=== PATIENT | male | born 1965 | race Two or more races ===

== ENCOUNTER 2017-06-23 20:44 | Inpatient (IN) | payer MEDICARE, MEDICAID ==
--- NOTE | 2017-06-23 21:12 | ED Physician Chart ---
ED Chief Complaint/HPI - Patient Information Date Seen:: 06/23/17 Time Seen:: 21:05 Chief Complaint:: aggressive behavior History of Present Illness:: [facility] been exhibiting aggressive behavior and inappropriately touching female employees Historian:: EMS Review:: Transfer documents Reviewed ED Review of Systems - Review of Systems General/Constitutional: No fever, No chills Skin: No skin lesions Head: No headache Eyes: Acuity change ENT: No earache Neck: No neck pain Cardio Vascular: No chest pain, No palpitations Pulmonary: No SOB GI: No nausea, No vomiting, No diarrhea Musculoskeletal: No bone or joint pain, No back pain, No muscle pain Endocrine: No polyuria Psychiatric: Prior psych history Hematopoietic: No bruising Allergic/Immuno: No urticaria Neurological: No syncope ED Past Medical History - Past Medical History Past Medical History: Other (intellectual disability) Family History: Other (unavailable) Social History: Care Facility Surgical History: other (unknown) Psychiatricy History: Other (unspecified intellectual disability ) Medication: Reviewed Family Medical History - Family Member Mother History Unknown: Yes ED Physical Exam - Physical Examination General/Constitutional: Well-developed, well-nourished, Alert, No distress Head: Atraumatic Eyes: Lids, conjuctiva normal Skin: Nl inspection ENMT: External ears, nose nl Neck: No nuchal rigidity Respiratory: Nl effort/Exclusion, Clear to Auscultation, No Wheeze/Rhonchi/Rales Cardio Vascular: RRR, No murmur, gallop, rubs GI: No tenderness/rebounding/guarding, No organomegaly, No hernia Other Extremities comments:: Paralysis left arm Other Neuro/Psych comments:: Drooping left corner mouth and paralysis left arm Misc: No paraspinal tenderness ED Labs/Radiology/EKG Results - Lab Results Results: Laboratory Results - last 24 hr 06/23/17 06/23/17 06/23/17 21:29 21:29 21:29 WBC 7.8 RBC 4.59 Hgb 13.6 Hct 41.4 MCV 90.1 MCH 29.7 MCHC Differential 33.0 RDW 14.2 Plt Count 229 MPV 8.4 Neutrophils % 56.8 Lymphocytes % 31.4 Monocytes % 7.9 Eosinophils % 2.2 Basophils % 1.7 Sodium 138 Potassium 3.8 Chloride 110 H Carbon Dioxide 22.8 Anion Gap 9.0 BUN 16 Creatinine 0.9 Est GFR ( Amer) > 60.0 Est GFR (Non-Af Amer) > 60.0 BUN/Creatinine Ratio 17.8 Glucose 95 Hemoglobin A1c % 5.5 Calcium 9.1 Total Bilirubin 0.3 AST 19 ALT 16 Alkaline Phosphatase 54 Total Protein 6.1 Albumin 3.3 L Globulin 2.8 Albumin/Globulin Ratio 1.2 Triglycerides 66 Cholesterol 95 LDL Cholesterol Direct 55 L HDL Cholesterol 35 - EKG Interpretations Rate & Rhythm: normal sinus rhythm with a rate of 68 Hasty: normal axis Comments:: Normal EKG ED Septic Shock - . Is Septic Shock (SBP<90, OR Lactate>4 mmol\L) present?: No ED Reassessment (Disposition) - Reassessment Reassessment:: Patient started using the F word frequently and was restless so he was sedated with Haldol 5 mg, Benadryl 50 milligrams and Ativan 2 mg all intramuscularly after which patient became sedated. - Diagnosis Diagnosis:: Aggressive behavior; mental disability - Patient Disposition Admitted to:: [facility] Admitting Medical Physician:: Cruzito Moise Admitting Psych Physician:: Alejandrina Negron Condition at Disposition:: Stable, Improved
[2017-06-23] MEDS ORDERED: Haloperidol Lactate 5 mg/mL 1mL Vial IM PRN ×2 (21:44→23:45)
[2017-06-23] MEDS ORDERED: Haloperidol Lactate 5 mg/mL 1mL Vial ONE (21:47)
[2017-06-23 21:48] LABS: % BASOPHILS 1.7 % (0.0-2.0); % EOSINOPHILS 2.2 % (0.0-5.0); % LYMPHOCYTES 31.4 % (20.0-50.0); % MONOCYTES 7.9 % (2.0-10.0); % NEUTROPHILS 56.8 % (40.0-80.0); BASOPHILE ABSOLUTE 0.1 Th/cumm (0-0.2); EOSINOPHILE ABSOLUTE 0.2 Th/cmm (0.1-0.4); HEMATOCRIT 41.4 % (41.0-60); HEMOGLOBIN 13.6 gm/dL (12-16); LYMPHOCYTE ABSOLUTE 2.4 Th/cmm (1.5-3.0); MEAN CELL VOLUME 90.1 fl (80-99); MEAN CORPUSCULAR HEMOGLOBIN 29.7 pg (26.0-30.0); MEAN PLATELET VOLUME 8.4 fl; MONOCYTE ABSOLUTE 0.6 Th/cmm (0.3-1.0); NEUTROPHILE ABSOLUTE 4.5 Th/cmm (1.8-8.0); PLATELET COUNT 229 Th/cmm (150-400); RED BLOOD COUNT 4.59 Mil/cmm (4.30-5.70); RED CELL DISTRIBUTION WIDTH 14.2 % (11.5-20.0); WHITE BLOOD COUNT 7.8 Th/cmm (4.8-10.8)
[2017-06-23 22:00] LABS: ALB/GLOB RATIO 1.2 (1.0-1.8); ALBUMIN 3.3 gm/dL (4.2-5.5); ALKALINE PHOSPHATASE 54 U/L (34-104); BILIRUBIN,TOTAL 0.3 mg/dL (0.3-1.0); BUN - UREA NITROGEN 16 mg/dL (7-25); CALCIUM SERUM 9.1 mg/dL (8.6-10.3); CARBON DIOXIDE 22.8 mEq/L (21.0-31.0); CHLORIDE 110 mEq/L (98-107); CHOLESTEROL 95 mg/dL (<200); CREATININE - SERUM 0.9 mg/dL (0.7-1.3); GFR AFRICAN-AMERICAN > 60.0 ml/min (>90); GFR NON AFRICAN-AMERICAN > 60.0 ml/min; GLUCOSE 95 mg/dL (70-105); HDL -HIGH DENSITY LIPOPROTEIN 35 mg/dL (23-92); POTASSIUM SERUM 3.8 mEq/L (3.5-5.1); SGOT 19 U/L (13-39); SGPT/ALT 16 U/L (7-52); SODIUM SERUM 138 mEq/L (136-145); TOTAL PROTEIN,SERUM 6.1 gm/dL (6.0-8.3); TRIGLYCERIDES 66 mg/dL (<150)
[2017-06-23 22:07] LABS: A1C % 5.5 % (4.0-6.0)
[2017-06-23 23:50] VITALS: BP 116/58
[2017-06-24] MEDS ORDERED: Magnesium Hydroxide (MOM) 30 mL UDC PO PRN ×2 (00:22→06:38)
[2017-06-24] MEDS ORDERED: Maalox 30 mL Cup PO PRN (00:22)
[2017-06-24] MEDS ORDERED: Non-Formulary Item 1 EA (Acetaminophen [Acetaminophen] 650 MG) PO PRN (06:38)
[2017-06-24] MEDS ORDERED: Fleet Enema 135 mL RC PRN (06:38)
[2017-06-24] MEDS ORDERED: Non-Formulary Item 1 EA (Cranberry [Cranberry] 450 MG) PO SCH (09:00)
[2017-06-24] MEDS: Lactobacillus Rhamnosus GG 15 Billion CFU CAP.SPRINK PO SCH ×2 (09:55→18:08)
[2017-06-24] MEDS: Atorvastatin Calcium 10 MG TAB PO SCH (09:55)
[2017-06-24] MEDS: Aspirin 81mg Chewable Tab PO SCH (09:55)
[2017-06-24] MEDS: Multivitamin Tab PO SCH (09:55)
--- NOTE | 2017-06-24 10:49 | Psychosocial Evaluation ---
DATE OF SERVICE: 06/23/2017 IDENTIFYING INFORMATION: The patient is a 51-year-old male. CHIEF COMPLAINT: No answer. HISTORY OF PRESENT ILLNESS: The patient was admitted because of aggressive behavior. [facility] He has exhibited aggressive behavior, inappropriately touching females and employees. This information was from the records. The patient is a very poor historian, nonverbal. He is mentally disabled with severe MR. PAST PSYCHIATRIC HISTORY: Unobtainable, but history of aggressive behavior. MEDICAL HISTORY: The patient has epilepsy. Apparently, he also had a CVA. He is with the [facility]. The patient has been on Depakene and Topamax for his seizure disorder. The dose of Depakote is 500 mg 3 times a day and topiramate 150 mg twice a day. He was given Haldol yesterday in the Emergency Room because of agitation and aggressive behavior. He is also on Celexa 40 mg daily, also on atorvastatin for hyperlipidemia. FAMILY AND SOCIAL HISTORY: Unobtainable. MENTAL STATUS EXAMINATION: The patient was in bed. He was alert, opening his eyes, but he would not answer any of my question, unpredictable, impulsive, needing redirection. Unable to participate in meaningful conversation or make safe plan for self-care, tell me his age, date, where he is, why he is here. He was acting aggressive, unable to participate in memory function, which obviously is decreased, long and short term memory. Unable to answer question on suicide and homicide. He was acting aggressive. He is unpredictable, irritable, easily to get agitated. Insight and judgment is impaired. IMPRESSION: AXIS I: Psychosis, not otherwise specified, rule out bipolar disorder, also severe MR. MEDICAL DIAGNOSES: Epilepsy and hyperlipidemia. Also on a psych diagnosis, depression, not otherwise specified. His assets, he is accepting treatment. Negative for poor coping skills. INITIAL TREATMENT PLAN: The patient will continue medication. We will evaluate the patient and adjust the medication as needed. ESTIMATED LENGTH OF STAY: 3-7 days. DISCHARGE CRITERIA: Decreased agitation, no longer acting aggressive, decreased depression. After discharge, outpatient. [facility]# [id number]
[2017-06-25] MEDS: Multivitamin Tab PO SCH (08:28)
[2017-06-25] MEDS: Aspirin 81mg Chewable Tab PO SCH (08:28)
[2017-06-25] MEDS: Atorvastatin Calcium 10 MG TAB PO SCH (08:29)
[2017-06-25] MEDS: Lactobacillus Rhamnosus GG 15 Billion CFU CAP.SPRINK PO SCH ×2 (08:29→16:41)
--- NOTE | 2017-06-25 18:45 | Progress Notes ---
DATE: The patient was seen and evaluated. The patient's chart reviewed. Covering for Dr. Negron. IDENTIFYING DATA: This is a 51-year-old male who was brought in here for aggressive behavior from a [facility] and touching female patients inappropriately. In the hospital course, in the last 48 hours, the patient has been started on and implemented atorvastatin, Celexa 40 mg a day, Topamax 150 mg p.o. b.i.d., Depakote 500 mg p.o. t.i.d. and Ambien 5 mg as needed. Today on [id number] evaluation, the patient is in his room, isolated, disengaged, he mostly stares and just reports everything is okay, everything is okay. When attempted to discuss more of a therapeutic alliance where he was coming from, the patient becomes more irritable and disengages in interview. MENTAL STATUS EXAMINATION: Still disengaged, distraught, overwhelmed, unpredictable. ASSESSMENT AND PLAN: The patient finds himself easily irritable, agitated, touching females inappropriately and hypersexual. We will continue monitoring and evaluating the Depakote level as he is on higher end of the 1500 mg and Celexa at 40 mg. JOB# [id number]
[2017-06-26] MEDS: Atorvastatin Calcium 10 MG TAB PO SCH (09:24)
[2017-06-26] MEDS: Aspirin 81mg Chewable Tab PO SCH (09:25)
[2017-06-26] MEDS: Multivitamin Tab PO SCH (09:26)
[2017-06-26] MEDS: Lactobacillus Rhamnosus GG 15 Billion CFU CAP.SPRINK PO SCH ×2 (09:26→16:56)
--- NOTE | 2017-06-26 19:06 | Progress Notes ---
DATE: 06/26/2017 COVERING FOR: Dr. Negron SUBJECTIVE: Overnight nursing staff reported the patient has been disengaged in his room, minimally interactive. Today on [id number] evaluation in his room, he denies any side effects of medications. MENTAL STATUS EXAMINATION: Mostly looks the garcia and states okay, does not give much more information beyond that, does know exactly where he is, unable to engage in a linear conversation, disengaged. ASSESSMENT AND PLAN: The patient with a history of unpredictable behavior, engaging and hypersexual episodes. We will continue with primary psychiatrist's treatment planning goals which include Celexa 40 mg a day, Topamax 150 twice a day, Depakote 500 mg p.o. t.i.d. to target the patient's mood and hypersexual behavior. [facility]# [id number]
--- NOTE | 2017-06-27 03:19 | History & Physical ---
ADMIT DATE: 06/26/2017 REASON FOR ADMISSION: Psychiatric disorders. HISTORY OF PRESENT ILLNESS: This is a 51-year-old male was admitted to [facility] for underlying psychiatric illness by Dr. Negron. Dr. Negron requested medical H and P for this patient. The patient denies any medical complaints or concerns. PAST MEDICAL HISTORY: Seizure disorders, hyperlipidemia. PAST SURGICAL HISTORY: No significant past surgical history reported. SOCIAL HISTORY: Negative for alcohol, tobacco or street drug use. CURRENT MEDICATIONS: Tylenol, Mylanta, aspirin, atorvastatin, vitamin D, Celexa, docusate, lactobacillus, magnesium oxide, multivitamin, Topamax, Depakote and Ambien. REVIEW OF SYSTEMS: No reported fever, no chills, no diarrhea, no vomiting, no headache, no abdominal pain, no chest pain, no shortness of breath, no palpitations. PHYSICAL EXAMINATION: VITAL SIGNS: Temperature 97.3, pulse 64, respirations 20, blood pressure 100/57, 99% on room air. Pain 0/10. GENERAL APPEARANCE: The patient lying comfortably. HEART: S1, S2 normal. LUNGS: Clear to auscultation bilaterally. ABDOMEN: Soft, nontender. NEUROLOGIC: The patient is awake, grossly nonfocal. EXTREMITIES: No edema. AVAILABLE LABORATORY DATA: Has been reviewed. ASSESSMENT: 1. Seizure disorder. 2. Hyperlipidemia. 3. Mental disorder. PLAN: Continue seizuzre medications, the patient's seizure precautions, fall precautions. Continue statin. Psych evaluation and management per psychiatrist. Thank you, Dr. Negron, for allowing me to participate in the care of this patient. [facility]# [id number] [facility]
[2017-06-27] MEDS: Multivitamin Tab PO SCH (09:54)
[2017-06-27] MEDS: Atorvastatin Calcium 10 MG TAB PO SCH (09:55)
[2017-06-27] MEDS: Aspirin 81mg Chewable Tab PO SCH (09:55)
[2017-06-27] MEDS: Lactobacillus Rhamnosus GG 15 Billion CFU CAP.SPRINK PO SCH ×2 (09:56→17:42)
--- NOTE | 2017-06-27 22:52 | Progress Notes ---
DATE: 06/27/2017 Case was discussed with staff of the patient. The staff report, the patient was sleep walking yesterday. The patient continues to be confused. He is demented with low IQ. He is unpredictable, impulsive, and needing redirection. He has been compliant with the medication with no side effects, no sedation, and no nausea. He is on Namenda 10 mg twice a day and Depakote was initiated on the 06/23/2017, so I will be checking his level to help with his agitation to make sure we are on the right dose and no side effects with the medication, no sedation, and no nausea. We will continue to work with the patient in group therapy, milieu therapy, and adjust the medications as needed. JOB# [id number]
[2017-06-28] MEDS: Lactobacillus Rhamnosus GG 15 Billion CFU CAP.SPRINK PO SCH ×2 (09:11→17:38)
[2017-06-28] MEDS: Atorvastatin Calcium 10 MG TAB PO SCH (09:12)
[2017-06-28] MEDS: Multivitamin Tab PO SCH (09:12)
[2017-06-28] MEDS: Aspirin 81mg Chewable Tab PO SCH (09:12)
--- NOTE | 2017-06-28 23:36 | Progress Notes ---
DATE: 06/28/2017 Case was discussed with staff of the patient, reviewed records. The patient continues to be unpredictable, impulsive, needing redirection, confused, and unable to make safe plan for self-care or participate in meaningful conversation. Continues to have poor insight. He is sleeping better. He is prompting to eat. No side effects with the medication, no sedation, and no nausea. We will continue to work with the patient in group therapy, milieu therapy, and adjust the medications as needed. JOB# [id number]
[2017-06-29] MEDS: Multivitamin Tab PO SCH (09:41)
[2017-06-29] MEDS: Aspirin 81mg Chewable Tab PO SCH (09:41)
[2017-06-29] MEDS: Lactobacillus Rhamnosus GG 15 Billion CFU CAP.SPRINK PO SCH ×2 (09:41→16:33)
[2017-06-29] MEDS: Atorvastatin Calcium 10 MG TAB PO SCH (09:42)
--- NOTE | 2017-06-29 17:23 | Progress Notes ---
DATE: 06/29/2017 SUBJECTIVE: The patient seen and examined. The patient is lying in the bed. The patient has no seizure activity. Denies any chest pain, shortness of breath, palpitation, dizziness, nausea, vomiting. PHYSICAL EXAMINATION: VITAL SIGNS: Temperature 98, pulse is 64, respiratory rate 18, blood pressure 110/60. HEENT: No facial asymmetry. Poor dentition noted. NECK: Supple, no JVD. HEART: Regular. CHEST: Lung equal in expansion. LUNGS: No wheezing, no crackles. ABDOMEN: Soft, no guarding or rigidity. Bowel sounds are not palpable. EXTREMITIES: No edema. NEUROLOGIC: Nonfocal. CLINICAL IMPRESSION: 1. Psychiatric disorder. 2. Seizure disorder. 3. Hyperlipidemia. PLAN: 1. Seizure precautions. 2. Seizure medication. 3. Statin. 4. General nursing care. 5. Fall precautions. 6. Psychotic evaluation and management defer to psychiatrist. 7. Care plan reviewed. JOB# [id number]
--- NOTE | 2017-06-30 02:42 | Progress Notes ---
DATE: 06/29/2017 Case was discussed with staff of the patient and reviewed records. The patient continues to be irritable, easily agitated, unpredictable, impulsive, needing redirection. He continues to have poor insight, unable to make safe plan for self-care or participate in meaningful conversation. No side effects to the medication, no sedation, no nausea, no extrapyramidal symptoms. Still easily agitated. We will be checking his Depakote level. JOB# [id number]
[2017-06-30] MEDS: Atorvastatin Calcium 10 MG TAB PO SCH (09:51)
[2017-06-30] MEDS: Lactobacillus Rhamnosus GG 15 Billion CFU CAP.SPRINK PO SCH ×2 (09:51→16:24)
[2017-06-30] MEDS: Aspirin 81mg Chewable Tab PO SCH (09:51)
[2017-06-30] MEDS: Multivitamin Tab PO SCH (09:51)
--- NOTE | 2017-06-30 21:55 | Progress Notes ---
DATE: 06/30/2017 SUBJECTIVE: The patient seen and examined. The patient has no new complaint. PHYSICAL EXAMINATION: VITAL SIGNS: See nurse's notes. HEENT: Poor dentition. NECK: Supple, no JVD. HEART: Regular. CHEST: Lung equal in expansion. No wheezing, no crackles. ABDOMEN: Soft. EXTREMITIES: No edema. CLINICAL IMPRESSION: 1. Seizure disorder. 2. Hyperlipidemia. 3. Psychotic disorder. PLAN: Continue seizure medication with seizure precautions. Continue statin along with followup lipid panel as an outpatient. Continue for general nursing care along with psychiatric treatment as provided by the psychiatrist. JOB# [id number]
--- NOTE | 2017-07-01 02:02 | Progress Notes ---
DATE: 06/30/2017 SUBJECTIVE: Case was discussed with staff of the patient and reviewed records. The patient continues to have poor insight. Continues to be unpredictable, impulsive, and needing redirection. He is limited with his IQ. He is on Celexa 40 mg a day, multivitamin, topiramate 150 mg twice a day, and Depakote 500 mg 3 times a day with no side effects, no sedation, and no nausea. His RPR is nonreactive. TSH is within normal range. He has low LDL. The serum cholesterol otherwise is within normal range. Chemistry panel with high chloride, the rest is within normal range. CBC within normal range. PLAN: We will continue the patient in group therapy, milieu therapy, and adjust medication as needed. JOB# [id number]
[2017-07-01] MEDS: Atorvastatin Calcium 10 MG TAB PO SCH (09:14)
[2017-07-01] MEDS: Lactobacillus Rhamnosus GG 15 Billion CFU CAP.SPRINK PO SCH ×2 (09:15→16:36)
[2017-07-01] MEDS: Aspirin 81mg Chewable Tab PO SCH (09:17)
[2017-07-01] MEDS: Multivitamin Tab PO SCH (09:17)
--- NOTE | 2017-07-01 20:48 | Progress Notes ---
DATE: 07/01/2017 SUBJECTIVE: Case was discussed with staff of the patient and reviewed records. The patient continues to be confused. He is incontinent. Continues to be unable to make safe plan for self-care, unpredictable, impulsive, and needing redirection. He is compliant with the medication, no side effects, no sedation, no nausea noted from the symptoms and we will continue to work with the patient in group therapy, milieu therapy, adjust medication as needed. JOB# [id number]
[2017-07-02] MEDS: Atorvastatin Calcium 10 MG TAB PO SCH (09:48)
[2017-07-02] MEDS: Multivitamin Tab PO SCH (09:50)
[2017-07-02] MEDS: Aspirin 81mg Chewable Tab PO SCH (09:50)
[2017-07-02] MEDS: Lactobacillus Rhamnosus GG 15 Billion CFU CAP.SPRINK PO SCH ×2 (09:50→16:40)
--- NOTE | 2017-07-02 23:51 | Progress Notes ---
DATE: 07/02/2017 SUBJECTIVE: Case discussed with staff of the patient, reviewed records. The patient continues to be confused, unpredictable, impulsive, needing redirection. Continues to have episodes of agitation, irritability. He continues to have poor insight. Unable to engage in a meaningful conversation. He is developmentally disabled. Compliant with the medication with no side effects, no sedation, no nausea. His lab work showed CBC within normal range. Chemistry panel with high chloride and the rest within normal range with low albumin. Lipid profile with low LDL cholesterol, rest within normal range. RPR nonreactive. We will continue to work with the patient in group therapy, milieu therapy, and adjust the medication as needed. JOB# [id number]
[2017-07-03] MEDS: Multivitamin Tab PO SCH (09:00)
[2017-07-03] MEDS: Atorvastatin Calcium 10 MG TAB PO SCH (09:00)
[2017-07-03] MEDS: Lactobacillus Rhamnosus GG 15 Billion CFU CAP.SPRINK PO SCH ×2 (09:01→16:35)
[2017-07-03] MEDS: Aspirin 81mg Chewable Tab PO SCH (09:14)
--- NOTE | 2017-07-04 01:11 | Progress Notes ---
DATE: 07/03/2017 Case was discussed with staff of the patient, reviewed records. The patient continues to be confused, unable to participate in a meaningful conversation or make safe plan for self-care, unpredictable, impulsive, needing redirection at times, easily agitated. He is sleeping well, eating well. He is compliant with the medication with no side effects, no sedation, no nausea, no extrapyramidal symptoms. We will continue to work with the patient in group therapy, milieu therapy, adjust the medication as needed. I will be checking his Depakote level. JOB# [id number]
[2017-07-04] MEDS: Atorvastatin Calcium 10 MG TAB PO SCH (09:21)
[2017-07-04] MEDS: Multivitamin Tab PO SCH (09:23)
[2017-07-04] MEDS: Lactobacillus Rhamnosus GG 15 Billion CFU CAP.SPRINK PO SCH ×2 (09:23→17:42)
[2017-07-04] MEDS: Aspirin 81mg Chewable Tab PO SCH (09:24)
--- NOTE | 2017-07-04 22:10 | Progress Notes ---
DATE: 07/04/2017 SUBJECTIVE: The patient seen and examined. The patient is lying in the bed. On further questioning, patient denies any chest pain, shortness of breath, palpitation, dizziness, nausea. No seizure activity was noted on exam. OBJECTIVE: VITAL SIGNS: Temperature 97, pulse is 64, respiratory rate is 18, blood pressure 110/70. HEENT: No facial asymmetry. Poor dentition noted. NECK: Supple, no JVD, no lymph or thyromegaly. HEART: Both heart sounds are regular. CHEST: Equal in expansion, no wheezing, no crackles. ABDOMEN: Soft. No guarding, rigidity. Bowel sounds heard. No palpable mass. EXTREMITIES: No edema. NEUROLOGIC: Limited, but nonfocal. CLINICAL IMPRESSION: 1. Seizure disorder. 2. Hyperlipidemia. 3. Psychotic disorder. PLAN: 1. Seizure medication. 2. Seizure precaution. 3. Statin. 4. General nursing care. 5. Psych medication. 6. Psych followup. 7. We will follow this patient during the stay as needed basis. JOB# [id number]
--- NOTE | 2017-07-04 23:43 | Progress Notes ---
DATE: 07/04/2017 SUBJECTIVE: Case was discussed with staff of the patient and reviewed records. The patient today is in bed. He continues to have episodes of irritability, continues to be unpredictable, impulsive, needing redirection. He is sleeping well and eating well. ASSESSMENT AND PLAN: No side effects from the medication, no sedation, no nausea. He is on Depakote. I will be checking his Depakote level and we will continue to work with the patient in group therapy, milieu therapy, and adjust medications as needed. JOB# [id number]
[2017-07-05] MEDS: Aspirin 81mg Chewable Tab PO SCH (09:52)
[2017-07-05] MEDS: Atorvastatin Calcium 10 MG TAB PO SCH (09:52)
[2017-07-05] MEDS: Multivitamin Tab PO SCH (09:53)
[2017-07-05] MEDS: Lactobacillus Rhamnosus GG 15 Billion CFU CAP.SPRINK PO SCH ×2 (09:53→16:57)
--- NOTE | 2017-07-06 01:06 | Progress Notes ---
DATE: 07/05/2017 SUBJECTIVE: Case was discussed with staff of the patient, reviewed records. The patient continues to be mostly internally preoccupied. Unable to make safe plan for self-care. He is developmentally disabled, needing help with his ADLs, cannot take care of himself. He is unpredictable and impulsive. He is compliant with the medication with no side effects, no sedation, no nausea, no extrapyramidal symptoms. He is on Celexa 40 mg a day, topiramate 150 mg twice a day and Depakote 500 mg 3 times a day and that would help with his mood swings, irritability as well as seizure and we will continue to work with the patient in group therapy and milieu therapy and adjust the medications as needed. JOB# [id number]
[2017-07-06] MEDS: Atorvastatin Calcium 10 MG TAB PO SCH (09:02)
[2017-07-06] MEDS: Aspirin 81mg Chewable Tab PO SCH (09:03)
[2017-07-06] MEDS: Lactobacillus Rhamnosus GG 15 Billion CFU CAP.SPRINK PO SCH ×2 (09:03→16:05)
[2017-07-06] MEDS: Multivitamin Tab PO SCH (09:03)
--- NOTE | 2017-07-06 12:46 | Progress Notes ---
DATE: 07/06/2017 Case was discussed with staff of the patient, reviewed records. Apparently, the family yesterday was here. They wanted the patient to be discharged and they think that he has been here too long and they said if we do not discharge the patient, they want to complaint and file a grievance. I discussed that with Aime, who is the nurse in charge of the unit ____. If he is not exhibiting any dangerous behavior, then he could leave [facility] as he was still trying to adjust his Depakote dose and make sure he is not taking too much to help with his acting out behavior and that he is on Celexa 40 mg daily and the family can take him against medical advice and he could be discharged; however, today he did not go and I am not sure exactly what is going on. So at this point, working on trying to get a Depakote level. He is also on Topamax 150 mg twice a day with no side effects, no sedation, no nausea and we will continue to work with the patient in group therapy, milieu therapy, and adjust the medications as needed. JOB# [id number]
[2017-07-07] MEDS: Atorvastatin Calcium 10 MG TAB PO SCH (08:34)
[2017-07-07] MEDS: Aspirin 81mg Chewable Tab PO SCH (08:34)
[2017-07-07] MEDS: Lactobacillus Rhamnosus GG 15 Billion CFU CAP.SPRINK PO SCH ×2 (08:34→16:09)
[2017-07-07] MEDS: Multivitamin Tab PO SCH (08:35)
--- NOTE | 2017-07-08 00:03 | Progress Notes ---
DATE: 07/07/2017 SUBJECTIVE: Case is discussed with the staff of the patient. The patient is alert. He is able to talk; however, he looks disheveled. The staff reports he tends to be resistant to care. He is unpredictable, impulsive, developmentally disabled. He is compliant with the medication with no side effects, no sedation, no nausea. PLAN: His Depakote level came back to be within acceptable therapeutic range and I do have plan to hopefully discharge him tomorrow as I think this is probably his basic level of functioning and we will continue to work with the patient in group therapy, milieu therapy, adjust medication as needed. JOB# [id number]
[2017-07-08] MEDS: Atorvastatin Calcium 10 MG TAB PO SCH (09:31)
[2017-07-08] MEDS: Lactobacillus Rhamnosus GG 15 Billion CFU CAP.SPRINK PO SCH ×2 (09:31→16:17)
[2017-07-08] MEDS: Aspirin 81mg Chewable Tab PO SCH (09:32)
[2017-07-08] MEDS: Multivitamin Tab PO SCH (09:32)
--- NOTE | 2017-07-08 15:12 | Discharge Summary ---
DATE OF DISCHARGE: 07/08/2017 IDENTIFYING INFORMATION: The patient is a 51 years old male. HISTORY OF PRESENT ILLNESS: The patient was referred because of aggressive behavior to the nursing facility with history of aggressive behavior, inappropriate touching females and employees, information was from the records. The patient is a very poor historian, nonverbal mostly. He is developmentally disabled, severe MR, unable to get more information from him. COURSE IN THE HOSPITAL: The patient was continued with medication prior to admission, which was atorvastatin, ____, Celexa 40 mg daily, lactulose twice a day, Ativan as needed, and multivitamin. He was on Topamax 150 mg and Depakote 500 mg 3 times a day. The patient progressively got better. He was not acting anyway dangerous. He was resisting care at times. He was sleeping well, eating well. He was able to feed himself, so has improved. We felt he could be discharged to a lesser level of care. His Depakote level came back at 78.8. RPR nonreactive and his lipid profile within normal range. Chemistry panel with low albumin, the rest was within normal range. CBC: Within normal range. FINAL DIAGNOSES: AXIS I: Psychosis, not otherwise specified versus bipolar disorder, not otherwise specified. Also, MR. MEDICAL DIAGNOSES: Per medical doctor. The patient will be discharged back to the nursing facility. They are willing to take him back. He was no longer acting in anyway dangerous, sleeping well, eating well. So no aggressive behavior exhibited. Expected outpatient followup with the psychiatrist and primary care physician there. EXPECTED OUTCOME: Stable if the patient complies with the above. JOB# [id number]
== END 2017-07-08 18:50 | DRG 885 ==
LOC: ER 20:44 → GERO 23:00
PROVIDERS: ADMIT Psychiatry & Neurology Psychiatry; ATTEND Psychiatry & Neurology Psychiatry
DX: F29 Unspecified psychosis not due to a substance or known physiological condition (principal); F79 Unspecified intellectual disabilities; F31.9 Bipolar disorder, unspecified; G40.909 Epilepsy, unspecified, not intractable, without status epilepticus; E78.5 Hyperlipidemia, unspecified; I34.0 Nonrheumatic mitral (valve) insufficiency
CPT/HCPCS: 36415-UA; 80053-TC; 80061-TC; 80164-TC; 83036-90; 84443-TC; 85025-TC; 86592-TC; 93005; 97530; J1200; J1630; J2060; X3904; Z7610